=== PATIENT | male | born 1965 | race Caucasian/White ===

== ENCOUNTER 2025-03-11 10:45 | Emergency (ER) | payer OTHER ==
[~2025-03-11] VITALS: Ht 160 cm; Wt 63.5 kg
[2025-03-11] MEDS: IV NS 0.9% 1,000 ML BAG IV ONE (11:30)
[2025-03-11 12:40] LABS: PLATELET COUNT (AUTO) 276 K/uL (150-450); RED BLOOD CELL COUNT(AUTO) 4.35 MIL/uL (4.5-6.0); RED CELL DISTRIBUTION WIDTH 33.8 % (11.5-15.0); WHITE BLOOD COUNT (AUTO) 9.2 K/uL (4.3-11.0)
[2025-03-11 12:56] LABS: CALCIUM, SERUM 7.9 mg/dL (8.5-10.1); CREATININE 0.6 mg/dL (0.6-1.3); SODIUM SERUM 125 mmol/L (136-145); UREA NITROGEN, BLOOD 7 mg/dL (7-18)
[2025-03-11 13:01] LABS: ALCOHOL, BLOOD 11 mg/dL (0-10); ASPARTATE AMINOTRANSFERASE 29 U/L (15-37); TOTAL PROTEIN, SERUM 7.0 g/dL (6.4-8.2)
[2025-03-11 13:11] LABS: INR 1.2 (0.91-1.10)
[2025-03-11 13:31] LABS: APPEARANCE,URINE TURBID (CLEAR); BLOOD, URINE NEGATIVE Ery/uL (NEGATIVE); LEUKOCYTE ESTERASE ,URINE 1+ (NEGATIVE); NITRITE, URINE NEGATIVE (NEGATIVE); UGLUCOSE NEGATIVE (NEGATIVE)
[2025-03-11 13:47] LABS: ADD URINE CULTURE YES; SQUAMOUS EPITHELIAL CELL,UR Rare /HPF (None Seen)
[2025-03-11 14:20] LABS: AMPHETAMINE, URINE NEGATIVE (NEGATIVE); BARBITURATE, URINE NEGATIVE (NEGATIVE); BENZODIAZEPINE, URINE NEGATIVE (NEGATIVE); CANNABINOID, URINE NEGATIVE (NEGATIVE); COCCAINE, URINE NEGATIVE (NEGATIVE); OPIATE, URINE NEGATIVE (NEGATIVE)
[2025-03-11 17:24] VITALS: BP 141/80; TEMP 98.4; O2SAT 98
== END 2025-03-11 17:29 | disposition home or self-care (01) ==
LOC: ER 10:49 → EDBD 10:49 → ER 17:29
DX: R53.1 Weakness (principal); R06.02 Shortness of breath; Z59.00 Homelessness unspecified; Z79.899 Other long term (current) drug therapy
CPT/HCPCS: 99285; 96360; 93005; 71045; 70450; 85025; 80048; 87086; 80076; 81001; 36415; 84484 ×2; 85730; 82962; 80320; 80307; J7030; 87186-TC; G0480